=== PATIENT | male | born 1995 | race Hispanic/Latino ===

== ENCOUNTER 2019-11-19 12:13 | Emergency (ER) | payer OTHER ==
[2019-11-19] MEDS ORDERED: LIDOCAINE HCL-MPF 1% 2ML VIAL ONE (12:27)
[2019-11-19] MEDS ORDERED: TETANUS/DIPHTHERIA TOXOID [ADULT] 0.5 ML VIAL IM ONE (12:28)
[2019-11-19] MEDS ORDERED: LIDOCAINE HCL 1% 20 ML VIAL ONE ×2 (12:29→12:53)
== END 2019-11-19 13:37 | disposition home or self-care (01) ==
LOC: EDH 12:13
DX: S68.623A Partial traumatic transphalangeal amputation of left middle finger, initial encounter (principal); S68.625A Partial traumatic transphalangeal amputation of left ring finger, initial encounter; Z72.0 Tobacco use; X58.XXXA Exposure to other specified factors, initial encounter; Y93.89 Activity, other specified; Y92.098 Other place in other non-institutional residence as the place of occurrence of the external cause; Y99.8 Other external cause status
CPT/HCPCS: 12002; 73130; 90471; 90714; J3490

== ENCOUNTER 2021-07-19 17:06 | Emergency (ER) | payer OTHER ==
[~2021-07-19] VITALS: Ht 193 cm; Wt 231.3 kg
[2021-07-19 19:16] VITALS: BP 139/83
[2021-07-19] MEDS ORDERED: CYCLOBENZAPRINE HCL 10 MG TABLET PO ONE (19:30)
[2021-07-19] MEDS ORDERED: IBUPROFEN 600 MG TABLET PO ONE (19:30)
[2021-07-19] MEDS ORDERED: CYCL10TA16 PO (19:58)
[2021-07-19] MEDS ORDERED: IBUP-2070 PO (19:58)
== END 2021-07-19 20:08 | disposition home or self-care (01) ==
LOC: EDH 17:06
DX: M25.512 Pain in left shoulder (principal); Z79.1 Long term (current) use of non-steroidal anti-inflammatories (NSAID); V49.49XA Driver injured in collision with other motor vehicles in traffic accident, initial encounter; Y93.89 Activity, other specified; Y92.89 Other specified places as the place of occurrence of the external cause; Y99.8 Other external cause status

== ENCOUNTER 2021-12-14 09:58 | Emergency (ER) | payer OTHER ==
[~2021-12-14] VITALS: Ht 193 cm; Wt 195.0 kg
[~2021-12-14 09:58] MED LIST: CYCL10TA16 PO; IBUP-2070 PO
[2021-12-14 10:02] VITALS: BP 125/65
[2021-12-14 10:50] LABS: BASOPHILS % (AUTO) 0.2 % (0.0-5.0); EOSINOPHILS % (AUTO) 2.2 % (0.0-8.0); HEMATOCRIT 42.8 % (42-54); LYMPHOCYTES % (AUTO) 17.7 % (21.0-51.0); MEAN CORPUSCULAR HEMOGLOBIN 28.9 pg (27.0-33.0); MEAN CORPUSCULAR HGB CONC 34.3 g/dL (32.0-36.0); MEAN CORPUSCULAR VOLUME 84.3 fL (79-99); MONOCYTES % (AUTO) 7.5 % (3.0-13.0); NEUTROPHILS % (AUTO) 72.2 % (40.0-77.0); PLATELET COUNT (AUTO) 280 K/uL (130-400); RED BLOOD CELL COUNT(AUTO) 5.08 MIL/uL (4.50-6.20); RED CELL DISTRIBUTION WIDTH 12.9 % (11.0-15.5); WHITE BLOOD COUNT (AUTO) 8.3 K/uL (4.8-10.8)
[2021-12-14 11:01] LABS: CREATININE 0.8 mg/dL (0.5-1.5); POTASSIUM 3.9 mmol/L (3.5-5.1)
[2021-12-14 11:06] LABS: ALBUMIN 3.6 g/dL (3.5-5.0); TOTAL PROTEIN, SERUM 7.2 g/dL (6.0-8.3)
[2021-12-14 11:18] LABS: APPEARANCE,URINE CLEAR (CLEAR); BILIRUBIN,URINE NEGATIVE (NEGATIVE); COLOR,URINE YELLOW (YELLOW); GLUCOSE, URINE (UA) NEGATIVE (NEGATIVE); KETONES,URINE NEGATIVE (NEGATIVE); LEUKOCYTE ESTERASE ,URINE NEGATIVE Leu/uL (NEGATIVE); NITRATE,URINE NEGATIVE (NEGATIVE); OCCULT BLOOD,URINE NEGATIVE (NEGATIVE); PH,URINE 6.5 (5.0-8.0); PROTEIN,URINE NEGATIVE (NEGATIVE); UROBILINOGEN,URINE 3 mg/dL (0.2-1.0)
[2021-12-14] MEDS ORDERED: 0.9%NACL 1000ML 1,000 ML IV ONE (12:00)
== END 2021-12-14 11:44 | disposition home or self-care (01) ==
LOC: EDH 09:58
DX: E86.0 Dehydration (principal); Z79.899 Other long term (current) drug therapy; Z98.890 Other specified postprocedural states
CPT/HCPCS: 36415; 71045; 80053; 81003; 84484; 85025; 93005